=== PATIENT | male | born 1980 | race Two or more races ===

== ENCOUNTER 2021-10-10 15:06 | Outpatient (AMBR) | payer BC, SELFPAY ==
--- NOTE | 2021-09-20 13:42 | PTNOTE_ITS ---
PT OP Initial Eval Patient Information Visit Reasons: left calf sprain Medical Diagnosis: S86.91 Treatment Dx #1: Left Calf Pain Treatment Dx #2: Difficulty Walking Start of Care: 09/20/21 Date of Onset: May 2021 Initial Assessment Subjective Pt is a 41 y/o male c/o left calf pain (04/20) started after he stepped wrong and heard a pop back in May 2021. Pt instantly saw bruising and swelling as well in ability to walk. Pt's MRI found a partial thickness tear of the medial head of the gastrocnemius. Pt was initially seeing Dr Hairston but was transferred to Dr Yusuf due to [place]. Pt was wearing a cam boot for several we ek. At the moment Pt feels 75% better. Pt has limitation with prolonged walking, self care, chores, work duties, squatting, kneeling, standing, recreational activities, and traveling. Objective Left Ankle AROM DF: 10 deg PF: 30 deg Inversion: 20 deg Eversion: 15 deg Left Ankle MMTs: grossly 3-/5 Left Hip MMTs: grossly 3/5 SLS: 3 sec with ankle instability and imbalance Assessment Pt demonstrate left ankle pain and weakness consistent with MRI finding of the torn medial head of the gastroc leading to decline function. 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 1) Increase left ankle AROM WFL in 6 wks to be able to perform chores 2) Increase left ankle MMTs grossly to 4-/5 in 6 wks to be able to perform work duties 3) Increase left hip MMTs grossly to 4-/5 in 6 wks to be able to ambulate more than 1 hr 4) Decrease ankle pain to 2/10 in 6 wks to be able to travel 5) Increase SLS to 15 sec in 6 wks to be able to eprform self care activities 6) Indep with HEP Treatment Plan 1) Manual Therapy 2) Therapeutic Activities 3) Therapeutic Exercises 4) Modalities (ice, heat) 5) Balance Training 6) Gait Training Frequency and Duration 2 x wk for 6 wks Certification Dates: 09/20/21 to 12/19/20 Office Procedures PT Treatments PT Date of Service: 09/20/21 OP PT Eval Mod Complex 30 minutes: Yes
--- NOTE | 2021-09-24 12:38 | PT.ODAYNRPT ---
PT Outpatient Daily Note Date of Service: 09/24/21 OP Daily Note Visit Reasons: left calf sprain Outpatient Physical Therapy Treatment Date: 09/24/21 Subjective: Pt mention that his ankle does hurt or swells as much now. Pt saw surgeon yesterday and extended his leave 4 more weeks. Objective: Please see flow chart for list of ther ex performed Assessment: tolerate exercises with minimal pain Plan: Continue with PT Length of Time (minutes) of Treatment: 30 Minutes Office Procedures PT Treatments PT Date of Service: 09/24/21 Therapeutic Exercise 30 minutes: Yes PT Treatments PT Date of Service: 09/20/21 OP PT Eval Mod Complex 30 minutes: Yes
--- NOTE | 2021-09-26 16:44 | PTNOTE_ITS ---
PT Outpatient Daily Note Date of Service: 09/26/2021 OP Daily Note Visit Reasons: left calf sprain Outpatient Physical Therapy Treatment Date: 09/26/21 Subjective: pt states his LLE is doing ok upon visit. Objective: see flow sheet. Assessment: noted pt rubbing his L calf after he was done with the bike but denied pain and discomfort. noted limited ROM with calf raises. his weight shifting during tick- tock exercise causing him to slightly forward onto the rail could be for compensations. his balance still needs more practice as he is unsteady. pt refused ice pack post ther ex. Plan: continue POC per PT. Length of Time (minutes) of Treatment: 30 Minutes Office Procedures PT Treatments PT Date of Service: 09/24/21 Therapeutic Exercise 30 minutes: Yes PT Treatments PT Date of Service: 09/26/21 Therapeutic Exercise 30 minutes: Yes PT Treatments PT Date of Service: 09/20/21 OP PT Eval Mod Complex 30 minutes: Yes
--- NOTE | 2021-09-30 15:35 | PT.ODAYNRPT ---
PT Outpatient Daily Note Date of Service: 09/30/21 OP Daily Note Visit Reasons: left calf sprain Outpatient Physical Therapy Treatment Date: 09/30/21 Subjective: Pt mention that his ankle and calf is sore but feels better. Objective: Please see flow chart for list of ther ex performed Assessment: tolerate exercises with minimal pain Plan: Continue with PT Length of Time (minutes) of Treatment: 40 Minutes Office Procedures PT Treatments PT Date of Service: 09/24/21 Therapeutic Exercise 30 minutes: Yes PT Treatments PT Date of Service: 09/26/21 Therapeutic Exercise 30 minutes: Yes PT Treatments PT Date of Service: 09/30/21 Therapeutic Activity 15 minutes: Yes Therapeutic Exercise 30 minutes: Yes PT Treatments PT Date of Service: 09/20/21 OP PT Eval Mod Complex 30 minutes: Yes
--- NOTE | 2021-10-08 15:58 | PT.ODAYNRPT ---
PT Outpatient Daily Note Date of Service: 10/08/21 OP Daily Note Visit Reasons: left calf sprain Outpatient Physical Therapy Treatment Date: 10/08/21 Subjective: Pt's calf muscle is getting better. Pt feels stronger and walking longer with less pain Objective: Please see flow chart for list of ther ex performed Assessment: tolerate exercises with minimal pain Plan: Continue with PT Length of Time (minutes) of Treatment: 30 Minutes Office Procedures PT Treatments PT Date of Service: 09/24/21 Therapeutic Exercise 30 minutes: Yes PT Treatments PT Date of Service: 09/26/21 Therapeutic Exercise 30 minutes: Yes PT Treatments PT Date of Service: 09/30/21 Therapeutic Activity 15 minutes: Yes Therapeutic Exercise 30 minutes: Yes PT Treatments PT Date of Service: 10/08/21 Therapeutic Exercise 30 minutes: Yes PT Treatments PT Date of Service: 09/20/21 OP PT Eval Mod Complex 30 minutes: Yes
--- NOTE | 2021-10-10 16:00 | PT.ODAYNRPT ---
PT Outpatient Daily Note Date of Service: 10/10/21 OP Daily Note Visit Reasons: left calf sprain Outpatient Physical Therapy Treatment Date: 10/10/21 Subjective: Pt mention that his calf and ankle feels good. Objective: Please see flow chart for list of ther ex performed Assessment: tolerate exercises with minimal pain Plan: Continue with PT Length of Time (minutes) of Treatment: 30 Minutes Office Procedures PT Treatments PT Date of Service: 09/24/21 Therapeutic Exercise 30 minutes: Yes PT Treatments PT Date of Service: 09/26/21 Therapeutic Exercise 30 minutes: Yes PT Treatments PT Date of Service: 09/30/21 Therapeutic Activity 15 minutes: Yes Therapeutic Exercise 30 minutes: Yes PT Treatments PT Date of Service: 10/08/21 Therapeutic Exercise 30 minutes: Yes PT Treatments PT Date of Service: 10/10/21 Therapeutic Exercise 30 minutes: Yes PT Treatments PT Date of Service: 09/20/21 OP PT Eval Mod Complex 30 minutes: Yes
== END 2021-10-11 23:59 | disposition home or self-care (01) ==
PROVIDERS: PCP Nurse Practitioner Family; Referring Provider Nurse Practitioner Family; Visit Provider Orthopaedic Surgery
DX: M79.662 Pain in left lower leg (principal); M25.572 Pain in left ankle and joints of left foot; R26.2 Difficulty in walking, not elsewhere classified; R53.1 Weakness
CPT/HCPCS: 97110; 97162; 97530

== ENCOUNTER 2021-10-22 14:50 | Outpatient (AMBR) | payer BC, SELFPAY ==
--- NOTE | 2021-10-15 15:42 | PT.ODAYNRPT ---
PT Outpatient Daily Note Date of Service: 10/15/21 OP Daily Note Visit Reasons: left calf sprain Outpatient Physical Therapy Treatment Date: 10/15/21 Subjective: Pt's calf muscle feels pretty good. Pt does not have any concerns today Objective: Please see flow chart for list of ther ex performed Assessment: tolerate exercises with minimal pain; difficulty with soleus stretch due to tightness Plan: Continue with PT Length of Time (minutes) of Treatment: 40 Minutes Office Procedures PT Treatments PT Date of Service: 10/15/21 Therapeutic Exercise 45 minutes: Yes
--- NOTE | 2021-10-17 15:31 | PT.ODAYNRPT ---
PT Outpatient Daily Note Date of Service: 10/17/21 OP Daily Note Visit Reasons: left calf sprain Outpatient Physical Therapy Treatment Date: 10/17/21 Subjective: Pt mention that his left calf feels worse after last session. Pt mention that it was swollen the next day and continues to hurt today. Pt feels that it's related to the stretches we did last time. Objective: Please see flow chart for list of ther ex performed Assessment: tolerate exercises with minimal pain; no resistance done today. Post ice help decrease ankle pain Plan: Continue with PT Length of Time (minutes) of Treatment: 30 Minutes Office Procedures PT Treatments PT Date of Service: 10/15/21 Therapeutic Exercise 45 minutes: Yes PT Treatments PT Date of Service: 10/17/21 Therapeutic Exercise 30 minutes: Yes
--- NOTE | 2021-10-22 16:03 | PT.ODS1RPT ---
PT OP Progress/Discharge Note Date of Service: 10/22/21 Progress Note/DC Note Progress Note/Discharge Note: DC Note Patient Information Visit Reasons: left calf sprain Medical Diagnosis: S86.91 Treatment Dx #1: Left Calf Pain Service Continue Service or Discharge: Discharge Discharge Date: 10/22/21 Status Subjective: Pt's left ankle and calf pain is feeling much better. Pt stated that standing, walking, chores, kneeling, and performing recreational activities are easier now. Pt will like to stop physical therapy and return back to work [employer]. Pt sees at the end of the month. Objective: Left Ankle AROM DF: 15 deg PF: 40 deg Inversion: 20 deg Eversion: 15 deg Left Ankle MMTs: grossly 4-/5 Left Hip MMTs: grossly 3+/5 SLS: 30 sec Assessment: Pt demonstrate functional left ankle ROM and strength allowing him to resume ADLs, ambulate, and perform recreational activities with less limitation. Pt will no longer benefit from physical therapy due to meeting all set goals in therapy. Pt was instructed on HEP last session and educated to continue exercises to maintain overall mobility. Pt performed all exercises safely, thank you for your referrals. Plan: D/C home with HEP and follow up with MD EVANGELISTA Office Procedures PT Treatments PT Date of Service: 10/15/21 Therapeutic Exercise 45 minutes: Yes PT Treatments PT Date of Service: 10/17/21 Therapeutic Exercise 30 minutes: Yes PT Treatments PT Date of Service: 10/22/21 Therapeutic Exercise 30 minutes: Yes
== END 2021-11-11 23:59 | disposition home or self-care (01) ==
PROVIDERS: PCP Nurse Practitioner Family; Referring Provider Nurse Practitioner Family; Visit Provider Orthopaedic Surgery
DX: M79.662 Pain in left lower leg (principal); M25.572 Pain in left ankle and joints of left foot; R26.2 Difficulty in walking, not elsewhere classified; R53.1 Weakness
CPT/HCPCS: 97110

== ENCOUNTER 2025-04-11 13:32 | Observation (INO) | payer MEDICAID, SELFPAY ==
[2025-04-11] VITALS (16 sets, daily range): BP systolic 112–162; BP diastolic 71–92; PULSE 70–89; RESP 9–20; TEMP 36.5–36.7; O2SAT 94–98; BMI 34.2
--- NOTE | 2025-04-11 13:59 | PD.EDRME ---
Rapid Medical Screening Exam E Arrival date/time: 04/11/25 13:32 44-year-old male with a history of hypertension, hyperlipidemia, type 2 diabetes presents to the emergency room with a chief complaint of 8 out of 10 sternal chest pain x 2 days. Patient states this has been going on intermittently for the last 2 months. I have greeted and performed a focused initial assessment of this patient. A comprehensive ED assessment and evaluation of the patient, analysis of all test results, and completion of the medical decision making process will be conducted by additional ED providers. Chief Complaint: Chest Pain Time Seen by Provider: 04/11/25 13:42 Vital signs: Vital Signs Temperature 98.1 F 04/11/25 13:51 Pulse Rate 84 04/11/25 13:51 Respiratory Rate 18 04/11/25 13:51 Blood Pressure 134/80 H 04/11/25 13:51 Pulse Oximetry (%) 97 04/11/25 13:51 Oxygen Delivery Method Room Air 04/11/25 13:51 Vital signs reviewed by provider: Yes
--- NOTE | 2025-04-11 14:06 | XR_ITS ---
Examination: PA lateral chest 2 views TECHNIQUE: Upright PA lateral chest 2 views Date and time: April 11, 2025, 1420 hours Comparison May 26, 2023 INDICATION: Chest pain beginning 3 weeks ago. FINDINGS: Normal heart size The lungs are clear. Mild elevation right hemidiaphragm IMPRESSION: No active disease
--- NOTE | 2025-04-11 14:06 | EKG_ITS ---
[facility] Test Date: 2025-04-11 Pat Name: CHENCHO SCHRADER Department: Room: - Gender: Male Placement Officer: : 1980 Requested By: Howie Mcghee Order Number: [id number] Reading MD: Howie Mcghee Measurements Intervals [place] Rate: 80 P: 25 CA: 151 QRS: 7 QRSD: 114 T: 63 QT: 342 QTc: 396 Interpretive Statements SINUS RHYTHM POSSIBLE ANTERIOR MYOCARDIAL INFARCTION , OF INDETERMINATE AGE [30 ms Q WAVE IN V3/V4, OR R < 0.2 mV IN V4] Compared to ECG 05/26/2023 10:30:27 Myocardial infarct finding now present /store/S0/[id number]/ecg/[id number].pdf
[2025-04-11 14:42] LABS: Basophils # (Auto) 0.1 Thou/mm3 (0.0-0.2); Basophils % (Auto) 1 % (0-2.5); Eosinophils # (Auto) 0.2 Thou/mm3 (0.0-0.5); Eosinophils % (Auto) 3 % (0-10); Hematocrit 42.1 % (41.0-53.0); Hemoglobin 13.6 g/dL (13.5-16.0); Immature Granulocytes Auto 0.02 Thou/mm3 (0.00-0.00); Lymphocytes # (Auto) 2.3 Thou/mm3 (1.0-4.8); Lymphocytes % (Auto) 33 % (10-50); Mean Corpuscular HGB Conc 32.3 g/dl (31.0-37.0); Mean Corpuscular Hemoglobin 22.8 pg (25.0-35.0); Mean Corpuscular Volume 71 fL (80-100); Monocytes # (Auto) 0.7 Thou/mm3 (0.0-0.8); Monocytes % (Auto) 10 % (0-12); Neutrophils # (Auto) 3.7 Thou/mm3 (1.8-7.7); Neutrophils % (Auto) 53 % (37-80); Nucleated Red Blood Cell # 0.00 Thou/mm3 (0.00-0.00); Nucleated Red Blood Cell % 0 /100 WBC (0); Platelet Count 287 Thou/mm3 (140-440); RDW Standard Deviation 37.6 fL (35.1-43.9); Red Blood Count 5.96 Miln/mm3 (4.50-5.90); White Blood Count 7.0 Thou/mm3 (3.8-10.6)
[2025-04-11 14:58] LABS: B-Type Natriuretic Peptide < 20 pg/mL (0-100)
[2025-04-11 15:00] LABS: Alanine Aminotransferase 31 U/L (10-49); Albumin, Serum 4.3 gm/dL (3.5-5.0); Albumin/Globulin Ratio 1.5 (1.2-2.2); Alkaline Phosphatase 89 U/L (46-116); Anion Gap 5 (7-16); Aspartate Amino Transferase 28 U/L (0-34); BUN/Creatinine Ratio 9 Ratio (12-20); Bilirubin,Total 0.8 mg/dL (0.3-1.2); Blood Urea Nitrogen 11 mg/dL (9-23); Calcium 8.9 mg/dL (8.3-10.6); Calcium (Corrected) 8.9 mg/dL (8.5-10.1); Carbon Dioxide 26.1 mMol/L (20.0-31.0); Chloride 106 mMol/L (98-107); Creatinine (Component) 1.2 mg/dL (0.6-1.3); Estimated Creatinine Clearance 101.7 mL/min (>60); Globulin 2.9 gm/dL (2.3-3.5); Glucose 165 mg/dL (74-106); Osmolality,Calculated 277 (275-295); Potassium 4.3 mMol/L (3.4-5.1); Sodium 137 mMol/L (136-145); Total Protein 7.2 gm/dL (5.7-8.2); eGFR > 60 See Note
[2025-04-11 15:04] LABS: INR 1.0 (0.9-1.3); Partial Thromboplastin Time 26.8 Seconds (22.0-36.0); Prothrombin Time 11.0 Seconds (9.0-12.2)
[2025-04-11 15:09] LABS: Troponin I 0.196 ng/mL (0.0-0.045)
[2025-04-11 16:05] LABS: Collection Type, Urine Clean Catch
[2025-04-11 16:43] LABS: Amphetamine/Methamp Scrn,U Negative (Negative); Barbiturate Screen,Urine Negative (Negative); Benzodiazepines Screen,Urine Negative (Negative); Benzoylecgonine Screen, Ur Negative (Negative); Fentanyl Screen,Urine Negative (Negative); Opiate Screen,Urine Negative (Negative); THC Screen,Urine Negative (Negative)
[2025-04-11 16:51] LABS: Bilirubin,Urine Negative (Negative); Blood,Urine Negative (Negative); Clarity,Urine Clear (Clear/Hazy); Color,Urine Lt-Yellow (Lt Yel-Yel); Glucose, Urine 4+ (Negative); Ketones,Urine Negative (Negative); Leukocyte Esterase,Urine Negative (Negative); Nitrite,Urine Negative (Negative); PH,Urine 6.5 (5.0-7.0); Protein,Urine 1+ (Neg - Trace); RBC,Urine 1 /hpf (0-3); Specific Gravity,Urine 1.039 (1.001-1.035); Squamous Epithelial Cell,Urine < 1 /hpf (0-5); Urobilinogen,Urine Negative mg/dL (0.0-1.0); WBC,Urine < 1 /hpf (0-5)
[2025-04-11] MEDS: ASPIRIN 81 MG CHEW 162 MG PO (17:29)
[2025-04-11 17:53] LABS: Troponin I 0.186 ng/mL (0.0-0.045)
--- NOTE | 2025-04-11 19:16 | ESHP_ITS ---
<Statement entered by Brannon Deluna MD - 04/13/25 13:59> 44-year-old with past medical history significant for diabetes mellitus, chronic hypertension who presents emergency department with chest pain. His chest pain has some typical features. His initial troponin was mildly elevated but it peaked in the emergency room. Patient will be placed in observation for serial troponin. Will check echocardiogram. Will discuss with cardiology. Patient will need ischemic workup in the form of a stress test or CCTA as an outpatient. I have discussed and was present for the essential components of the history, physical examination, diagnosis, and treatment plan with the resident. I agree with the patient's care as documented by the resident and amended herein by me. Brannon Deluna MD FACP. Documentation for date of: 04/11/25 HPI History of Present Illness Chief complaint: Chest pain History of present illness: 44-year-old male with history of untreated hypertension, hyperlipidemia (on statin), and T2DM (on Farxiga, compliant) who presents with intermittent midsternal chest pain for several weeks, worsened significantly over the past 2 days. This morning, he developed severe midsternal chest pressure, described as crushing pain 8?9/10, with numbness and pain radiating to both arms and numbness/cold sensation in his feet. Pain is episodic, lasting 2?3 seconds, worse with movement. Associated with shortness of breath, dizziness, and nausea with vomiting for the first time today, prompting ED visit. Denies prior cardiac history, smoking, or family history of heart disease. ROS otherwise negative. Allergic to penicillin. ED Course: In the ED, the patient was given 162 mg of aspirin. An EKG was obtained and was normal. A chest X-ray was done, which showed no active disease. Labs showed a troponin peak of 0.196, which is currently trending downward. Creatinine was 1.2, glucose was 165, and PT/INR was normal. Review of Systems Review of Systems Narrative Review of Systems: negative ROS unless stated above Exam Vital Signs Temp Pulse Resp BP Pulse Ox O2 Del Method 97.9 F 79 19 130/81 96 Room Air 04/11/25 18:21 04/11/25 18:21 04/11/25 18:21 04/11/25 18:21 04/11/25 18:21 04/11/25 18:21 Narrative Exam General: Alert, no acute distress. Cardiac: RRR, normal S1/S2, no murmurs, rubs, or gallops, no JVD. Lungs: Clear to auscultation bilaterally, no rales or wheezes. Extremities: No cyanosis or edema, Results: Labs 04/13/25 05:13 04/13/25 05:13 Labs: Short CBC 04/11/25 Range/Units 14:18 WBC 7.0 (3.8-10.6) Thou/mm3 Hgb 13.6 (13.5-16.0) g/dL Hct 42.1 (41.0-53.0) % Plt Count 287 (140-440) Thou/mm3 BMP 04/11/25 14:18 Sodium 137 Potassium 4.3 Chloride 106 Carbon Dioxide 26.1 BUN 11 Creatinine 1.2 Glucose 165 H Calcium 8.9 Cardiac Enzymes 04/11/25 04/11/25 Range/Units 14:18 17:23 Troponin I 0.196 H* 0.186 H* (0.0-0.045) ng/mL Liver Function 04/11/25 Range/Units 14:18 Total Bilirubin 0.8 (0.3-1.2) mg/dL AST 28 (0-34) U/L ALT 31 (10-49) U/L Alkaline Phosphatase 89 (46-116) U/L Albumin 4.3 (3.5-5.0) gm/dL Urine 04/11/25 Range/Units 15:11 Urine Color Lt-Yellow (Lt Yel-Yel) Urine Clarity Clear (Clear/Hazy) Urine pH 6.5 (5.0-7.0) Ur Specific [place] 1.039 H (1.001-1.035) Urine Protein 1+ A (Neg - Trace) Urine Glucose (UA) 4+ A (Negative) Quality Measures Quality Measures VTE prophylaxis Medications Home Medications and Allergies Home Medications ?Medication ?Instructions ?Recorded ?Confirmed ?Type ergocalciferol (vitamin D2) 1,250 1,250 mcg PO QWEEK 0 12/16/21 04/11/25 History mcg (50,000 unit) capsule dapagliflozin propanediol 10 mg 10 mg PO DAILY 5 04/11/25 History tablet (Farxiga) testosterone cypionate 200 mg/mL 400 mg subcut Q7D 11/0504/11/25 History intramuscular oil Allergies Allergy/AdvReac Type Severity Reaction Status Date / Time Penicillins Allergy Severe Difficulty Verified 04/11/25 13:35 Breathing Visit Medications Acetaminophen (Acetaminophen 325 Mg Tablet) 650 mg PO Q6H PRN PRN Reason: Fever >100.4 or pain Stop: 05/11/25 18:45 Hydrocodone Bitart/Acetaminophen (Hydrocodone/Apap 5/325 Tablet) 1 tab PO Q4HR PRN PRN Reason: PAIN SCALE 4-10(Mod-Sev Stop: 04/16/25 18:45 Aspirin (Aspirin Ec 81 Mg Tabec) 81 mg PO QDAY [facility] Stop: 05/12/25 08:59 Atorvastatin Calcium (Atorvastatin Calcium 20 Mg Tablet) 80 mg PO [facility] Stop: 05/11/25 20:59 Dextrose (Dextrose 50%-Water Inj 50 Ml Syringe) 25 ml IV Q15MIN PRN PRN Reason: BG 50-70 responsive npo pt Stop: 05/11/25 18:51 Dextrose (Dextrose 50%-Water Inj 50 Ml Syringe) 50 ml IV Q15MIN PRN PRN Reason: BG <50 OR BG <70 & pt unresponsive Stop: 05/11/25 18:51 Enoxaparin Sodium (Enoxaparin Sod Inj 40 Mg/0.4 Ml Syringe) 40 mg SC QDAY [facility] Stop: 04/26/25 08:59 Glucagon (Glucagon Inj 1 Mg Vial) 1 mg IM Q15MIN PRN PRN Reason: BG <70, and no IV access Insulin Human Lispro (Insulin Lispro (Admelog) 1 Unit/0.01 Ml Unit) 0 unit SC [facility]; Protocol Stop: 05/12/25 07:29 Lisinopril (Lisinopril 20 Mg Tablet) 20 mg PO QDAY [facility] Stop: 05/12/25 08:59 Nitroglycerin (Nitroglycerin 0.4 Mg Subl Btl #25) 0.4 mg SL Q5M PRN PRN Reason: CHEST PAIN Ondansetron HCl (Ondansetron Inj 2 Mg/Ml Inj 2 Ml) 4 mg IVP Q6H PRN; Protocol PRN Reason: NAUSEA OR VOMITING Stop: 05/11/25 18:45 Discontinued Medications Aspirin (Aspirin 81 Mg Chew) 162 mg PO X1 ONE Stop: 04/11/25 17:14 Last Admin: 04/11/25 17:29 Dose: 162 mg Assessment & Plan Plan 44 y/o M with HTN, HLD, T2DM presenting with exertional chest pain, concerning for unstable angina vs NSTEMI (troponin 0.196, trending down) #Chest Pain/ rule out ACS Extertional chest pain that improved with aspirin, pmh of HTN, HLD and T2DM. EKG and CXR was normal * Continue telemetry monitoring * Ordered echo * Repeat serial troponins Am * Repeat EKG if symptoms worsen * Started atorvastatin 80 mg * started lisinopril 20 mg * started aspirin 81 mg * Keep nitro PRN if BP allows * ordered lipid panel, A1c and tsh * ordered mag and phosph * Cardiology consulted #Hypertension * Monitor BP closely; control as needed * [employer] on starting long-term antihypertensive therapy #HLD * Started on atorvastatin 80 mg #T2DM * Monitor glucose, adjust as needed * started insulin sliding scale Health Maintenance * Disposition: Admit to telemetry bed * Diet: Carbohydrate consistent * VTE prophylaxis: enoxaparin * GI prophylaxis: N/A * Code status: Full ----- Plan discussed with attending physician Dr. Regi Hidalgo MD PGY-1 Internal Medicine Patient seen and examined at bedside. I discussed and supervised with the investigator internal revenue physician who took care of this patient. I personally saw and examined the patient. I agree with most of the assessment and plan. Patient has intermittent chest pain, severe, relieved with aspirin. EKG negative, troponin peaked at 0.196. Patient has risk factors, HTN, T2DM. Will admit patient for observation. Lab workup including lipids, TSH, A1c, repeat troponin. Echo ordered. Started on atorvastatin, aspirin, lisinopril. ISS and carb consistent diet for diabetes. Telemetry monitoring. Possibly discharge tomorrow if nor concerning findings and symptoms improve. Plan of care discussed with attending Dr. Deluna. Don Babin MD PGY-2
[2025-04-11] MEDS: ATORVASTATIN CALCIUM 20 MG TABLET 80 MG PO (21:02)
[2025-04-12] VITALS (7 sets, daily range): BP systolic 107–138; BP diastolic 63–87; PULSE 34–90; RESP 12–16; TEMP 36.3–37; O2SAT 95–98
[2025-04-12] MEDS: ONDANSETRON INJ 2 MG/ML INJ 2 ML 4 MG IVP ×2 (00:21→13:37)
[2025-04-12 05:51] LABS: Basophils # (Auto) 0.0 Thou/mm3 (0.0-0.2); Basophils % (Auto) 1 % (0-2.5); Eosinophils # (Auto) 0.3 Thou/mm3 (0.0-0.5); Eosinophils % (Auto) 4 % (0-10); Hematocrit 40.9 % (41.0-53.0); Hemoglobin 13.0 g/dL (13.5-16.0); Immature Granulocytes Auto 0.02 Thou/mm3 (0.00-0.00); Lymphocytes # (Auto) 2.1 Thou/mm3 (1.0-4.8); Lymphocytes % (Auto) 32 % (10-50); Mean Corpuscular HGB Conc 31.8 g/dl (31.0-37.0); Mean Corpuscular Hemoglobin 22.5 pg (25.0-35.0); Mean Corpuscular Volume 71 fL (80-100); Monocytes # (Auto) 0.6 Thou/mm3 (0.0-0.8); Monocytes % (Auto) 10 % (0-12); Neutrophils # (Auto) 3.6 Thou/mm3 (1.8-7.7); Neutrophils % (Auto) 54 % (37-80); Nucleated Red Blood Cell # 0.00 Thou/mm3 (0.00-0.00); Nucleated Red Blood Cell % 0 /100 WBC (0); Platelet Count 284 Thou/mm3 (140-440); RDW Standard Deviation 38.4 fL (35.1-43.9); Red Blood Count 5.77 Miln/mm3 (4.50-5.90); White Blood Count 6.6 Thou/mm3 (3.8-10.6)
[2025-04-12 06:01] LABS: INR 1.0 (0.9-1.3); Partial Thromboplastin Time 27.1 Seconds (22.0-36.0); Prothrombin Time 11.4 Seconds (9.0-12.2)
[2025-04-12 06:37] LABS: Alanine Aminotransferase 37 U/L (10-49); Albumin, Serum 4.0 gm/dL (3.5-5.0); Albumin/Globulin Ratio 1.5 (1.2-2.2); Alkaline Phosphatase 72 U/L (46-116); Anion Gap 6 (7-16); Aspartate Amino Transferase 31 U/L (0-34); BUN/Creatinine Ratio 13 Ratio (12-20); Bilirubin,Total 0.6 mg/dL (0.3-1.2); Blood Urea Nitrogen 14 mg/dL (9-23); Calcium 8.4 mg/dL (8.3-10.6); Calcium (Corrected) 8.4 mg/dL (8.5-10.1); Carbon Dioxide 26.0 mMol/L (20.0-31.0); Cardiac Risk Estimate 5.0 RATIO (4.0-6.7); Chloride 107 mMol/L (98-107); Cholesterol 140 mg/dL (132-200); Creatinine (Component) 1.1 mg/dL (0.6-1.3); Estimated Creatinine Clearance 109.2 mL/min (>60); Globulin 2.6 gm/dL (2.3-3.5); Glucose 137 mg/dL (74-106); HDL Cholesterol 28 mg/dL (40-60); LDL Cholesterol,Calculated 70 mg/dL (0-130); Magnesium 2.1 mg/dL (1.6-2.6); Osmolality,Calculated 280 (275-295); Phosphorous 2.8 mg/dL (2.4-5.1); Potassium 4.3 mMol/L (3.4-5.1); Sodium 139 mMol/L (136-145); Thyroid Stimulating Hormone 1.52 uIU/mL (0.55-4.78); Total Protein 6.6 gm/dL (5.7-8.2); Triglycerides 209 mg/dL (30-150); Troponin I 0.185 ng/mL (0.0-0.045); eGFR > 60 See Note
[2025-04-12 08:18] LABS: Misc Send Out* See Sep Rpt
[2025-04-12] MEDS: ASPIRIN EC 81 MG TABEC PO (09:03)
[2025-04-12] MEDS: ENOXAPARIN SOD INJ 40 MG/0.4 ML SYRINGE SC (09:04)
[2025-04-12] MEDS: CALCIUM CARBONATE 600 MG TABLET PO (09:04)
--- NOTE | 2025-04-12 10:42 | PC.SS ---
Patient Edu Gibbons is a 44 Year old male admitted for Chest Pain. SS met with patient at bedside to discuss discharge plan. Patient reports he lives at home with family. Patient reports his Manolo Gibbons is his surrogate decision maker, . Patient is able to complete all ADL's independently and does not utilize any source of DME. Patient's PCP is Kelley Moctezuma. At time of discharge patient will return home. Family will provide transportation. Next of kin: , Manolo Gibbons Discharge plan: Home
--- NOTE | 2025-04-12 11:41 | PC.SS ---
SS follow up note; Patient is pending Cardiology Rec's. Patient will discharge home when medically cleared.
[2025-04-12] MEDS: HYDROcodone/APAP 5/325 TABLET 1 TAB PO (13:03)
--- NOTE | 2025-04-12 13:14 | ESPR_ITS ---
<Statement entered by Brannon Deluna MD - 04/13/25 19:44> I have discussed and was present for the essential components of the history, physical examination, diagnosis, and treatment plan with the resident. I agree with the patient's care as documented by the resident and amended herein by me. Brannon Deluna MD FACP. Documentation for date of: 04/12/25 Subjective Subjective Interval history: Patient seen at bedside this morning. He reported one episode of chest pain earlier this morning, but denied chest pain at the time of exam. He continues to have left arm numbness and intermittent shortness of breath, describing it as feeling like it?s hard to catch his breath at times. No vomiting but did have nausea, which improved with Zofran. Able to ambulate to bathroom but felt dizzy when walking. Denies muscle aches, swelling, calf pain, or headache. Later this afternoon, patient began complaining of lower colicky abdominal pain, described as 7/10, coming and going. He was given morphine with relief initially but then had another episode about an hour later, describing it as stabbing pain. An EKG was repeated at that time and showed sinus rhythm. An abdominal X- ray was obtained, which showed mild small bowel ileus and moderate stool burden in the colon. He was given Miralax, Senna, and Simethicone, and also received Toradol for pain. Labs: -Troponin stable, mildly elevated at 0.195 (prior 0.185, peak 0.196) -Hgb 13 -Electrolytes WNL -Creatinine 1.1 -Glucose 137 -Calcium 8.4, received calcium carbonate 600 mg PO Imaging: EKG: Sinus rhythm, no ischemic changes CXR: No acute disease Abdominal X-ray: Mild small bowel ileus, moderate stool burden Exam Vital Signs Temp Pulse Resp BP Pulse Ox O2 Del Method 98.1 F 34 L 16 133/77 H 98 Room Air 04/12/25 08:00 04/12/25 09:03 04/12/25 08:00 04/12/25 09:03 04/12/25 08:00 04/12/25 08:00 Narrative Exam -General: Alert, no acute distress -Cardiac: RRR, normal S1/S2, no murmurs, rubs, or gallops, no JVD -Lungs: Clear to auscultation bilaterally, mild SOB with deep breaths -Abdomen: Soft, mild lower abdominal tenderness, non-distended, normal bowel sounds, no guarding or rebound -Extremities: No cyanosis or edema, pulses 2+ bilaterally, warm, well-perfused Objective Labs 04/12/25 05:28 04/12/25 05:28 Labs: Laboratory Results - last 24 hr 04/11/25 04/11/25 04/11/25 14:18 15:11 17:23 WBC 7.0 RBC 5.96 H Hgb 13.6 Hct 42.1 MCV 71 L MCH 22.8 L MCHC 32.3 RDW Std Deviation 37.6 Plt Count 287 Neut % (Auto) 53 Lymph % (Auto) 33 [place] % (Auto) 10 Eos % (Auto) 3 Baso % (Auto) 1 Neut # (Auto) 3.7 Lymph # (Auto) 2.3 [place] # (Auto) 0.7 Eos # (Auto) 0.2 Baso # (Auto) 0.1 Immature Gran # (Auto) 0.02 H Absolute Nucleated RBC 0.00 Immature Gran % 0 Nucleated RBC % 0 PT 11.0 INR 1.0 APTT 26.8 Sodium 137 Potassium 4.3 Chloride 106 Carbon Dioxide 26.1 Anion Gap 5 L BUN 11 Creatinine 1.2 Estim Creat Clear Calc 101.7 eGFR > 60 BUN/Creatinine Ratio 9 L Glucose [address] Glu mg/dL Hemoglobin A1c Calculated Osmolality 277 Calcium 8.9 Corrected Calcium 8.9 Phosphorus Magnesium Total Bilirubin 0.8 AST 28 ALT 31 Alkaline Phosphatase 89 Troponin I 0.196 H* 0.186 H* B-Natriuretic Peptide < 20 Total Protein 7.2 Albumin 4.3 Globulin 2.9 Albumin/Globulin Ratio 1.5 Triglycerides Cholesterol LDL Cholesterol, Calc HDL Cholesterol Cholesterol/HDL Ratio TSH Ur Collection Type Clean Catch Urine Color Lt-Yellow Urine Clarity Clear Urine pH 6.5 Ur Specific [place] 1.039 H Urine Protein 1+ A Urine Glucose (UA) 4+ A Urine Ketones Negative Urine Blood Negative Urine Nitrite Negative Urine Bilirubin Negative Urine Urobilinogen (Auto) Negative Ur Leukocyte Esterase Negative Urine RBC 1 Urine WBC < 1 Ur Squamous Epith Cells < 1 Urine Bacteria None Urine Opiates Screen Negative Urine Fentanyl Screen Negative Ur Barbiturates Screen Negative U Amphetamin/Meth Scrn Negative U Benzodiazepines Scrn Negative U Cocaine Metab Screen Negative U Marijuana (THC) Screen Negative 04/12/25 05:28 WBC 6.6 RBC 5.77 Hgb 13.0 L Hct 40.9 L MCV 71 L MCH 22.5 L MCHC 31.8 RDW Std Deviation 38.4 Plt Count 284 Neut % (Auto) 54 Lymph % (Auto) 32 [place] % (Auto) 10 Eos % (Auto) 4 Baso % (Auto) 1 Neut # (Auto) 3.6 Lymph # (Auto) 2.1 [place] # (Auto) 0.6 Eos # (Auto) 0.3 Baso # (Auto) 0.0 Immature Gran # (Auto) 0.02 H Absolute Nucleated RBC 0.00 Immature Gran % 0 Nucleated RBC % 0 PT 11.4 INR 1.0 APTT 27.1 Sodium 139 Potassium 4.3 Chloride 107 Carbon Dioxide 26.0 Anion Gap 6 L BUN 14 Creatinine 1.1 Estim Creat Clear Calc 109.2 eGFR > 60 BUN/Creatinine Ratio [address]ucose [address] Glu mg/dL Cancelled Hemoglobin A1c Cancelled Calculated Osmolality 280 Calcium 8.4 Corrected Calcium 8.4 L Phosphorus 2.8 Magnesium 2.1 Total Bilirubin 0.6 AST 31 ALT 37 Alkaline Phosphatase 72 Troponin I 0.185 H* B-Natriuretic Peptide Total Protein 6.6 Albumin 4.0 Globulin 2.6 Albumin/Globulin Ratio 1.5 Triglycerides 209 H Cholesterol 140 LDL Cholesterol, Calc 70 HDL Cholesterol 28 L Cholesterol/HDL Ratio 5.0 TSH 1.52 Ur Collection Type Urine Color Urine Clarity Urine pH Ur Specific [place] Urine Protein Urine Glucose (UA) Urine Ketones Urine Blood Urine Nitrite Urine Bilirubin Urine Urobilinogen (Auto) Ur Leukocyte Esterase Urine RBC Urine WBC Ur Squamous Epith Cells Urine Bacteria Urine Opiates Screen Urine Fentanyl Screen Ur Barbiturates Screen U Amphetamin/Meth Scrn U Benzodiazepines Scrn U Cocaine Metab Screen U Marijuana (THC) Screen Quality Measures Quality Measures VTE prophylaxis Assessment & Plan Assessment Current Active Medications: Generic Name Dose Route Start Last Admin Trade Name Freq PRN Reason Stop Dose Admin Acetaminophen 650 mg 04/11/25 18:46 Acetaminophen 325 Mg Tablet PO 05/11/25 18:45 Q6H PRN Fever >100.4 or pain Hydrocodone Bitart/Acetaminophen 1 tab 04/11/25 18:46 04/12/25 13:03 Hydrocodone/Apap 5/325 Tablet PO 04/16/25 18:45 1 tab Q4HR PRN Administration PAIN SCALE 4-10(Mod-Sev Aspirin 81 mg 04/12/25 09:00 04/12/25 09:03 Aspirin Ec 81 Mg Tabec PO 05/12/25 08:59 81 mg QDAY ELLIOTT Administration Atorvastatin Calcium 80 mg 04/11/25 21:00 04/11/25 21:02 Atorvastatin Calcium 20 Mg Tablet PO 05/11/25 20:59 80 mg HS ELLIOTT Administration Dextrose 25 ml 04/11/25 18:52 Dextrose 50%-Water Inj 50 Ml Syringe IV 05/11/25 18:51 Q15MIN PRN BG 50-70 responsive npo pt Dextrose 50 ml 04/11/25 18:52 Dextrose 50%-Water Inj 50 Ml Syringe IV 05/11/25 18:51 Q15MIN PRN BG <50 OR BG <70 & pt unresponsive Enoxaparin Sodium 40 mg 04/12/25 09:00 04/12/25 09:04 Enoxaparin Sod Inj 40 Mg/0.4 Ml Syringe SC 04/26/25 08:59 40 mg QDAY ELLIOTT Administration Glucagon 1 mg 04/11/25 18:52 Glucagon Inj 1 Mg Vial IM Q15MIN PRN BG <70, and no IV access Insulin Human Lispro 0 unit 04/12/25 07:30 04/12/25 12:21 Insulin Lispro (Admelog) 1 Unit/0.01 Ml Unit SC 05/12/25 07:29 Not Given AC [facility] Protocol Lisinopril 20 mg 04/12/25 09:00 04/12/25 09:03 Lisinopril 20 Mg Tablet PO 05/12/25 08:59 20 mg QDAY ELLIOTT Administration Nitroglycerin 0.4 mg 04/11/25 18:56 Nitroglycerin 0.4 Mg Subl Btl #25 SL Q5M PRN CHEST PAIN Ondansetron HCl 4 mg 04/11/25 18:46 04/12/25 00:21 Ondansetron Inj 2 Mg/Ml Inj 2 Ml IVP 05/11/25 18:45 4 mg Q6H PRN Administration NAUSEA OR VOMITING Protocol Plan Assessment 44 y/o M with PMH HTN, HLD, T2DM admitted for exertional chest pain with peak troponin 0.196, now stable at 0.195. Echo pending. Cardiology consulted, awaiting recommendations. Patient had one episode of CP this morning but asymptomatic now. Continues to have left arm numbness and intermittent SOB. Newly developed lower abdominal pain this afternoon with X-ray showing mild ileus and stool burden ? being managed supportively. #Chest Pain -Troponin stable, EKG normal -Echo pending -Cardiology consulted, awaiting recs -Continue aspirin, atorvastatin 80mg -Continue lisinopril 20 mg daily for BP control -Nitro PRN if chest pain recurs #Abdominal Pain/Mild Ileus -Likely related to constipation and mild ileus on imaging -Given Miralax, Senna, Simethicone -Toradol given for pain; monitor for response -Encourage ambulation and hydration -Monitor for worsening pain, distension, or signs of obstruction #Hypertension -Continue lisinopril 20?mg daily -Monitor BP #T2DM -Continue Farxiga -Monitor glucose #SOB #Dizziness -Check orthostatics -Encourage ambulation as tolerated -Monitor for worsening #Left Arm Numbness -Monitor for neuro changes -No acute intervention if stable # Electrolytes/Calcium -Calcium carbonate given for low-normal calcium -Recheck if needed Health Maintenance * Disposition: Admit to telemetry bed * Diet: Carbohydrate consistent * VTE prophylaxis: enoxaparin * GI prophylaxis: N/A * Code status: Full ----- Plan discussed with attending physician Dr. Regi Hidalgo MD PGY-1 Internal Medicine Patient seen and examined at bedside, no acute overnight events. I discussed and supervised with the internal communications specialist physician who took care of this patient. I personally saw and examined the patient. I agree with most of the assessment and plan. Patient continues to have reccurent pain, mostly located in abdomen now. Troponin remains elevated, stable. KUB showed moderate ileus. Patient started on bowel protocol. Pending cardiac recs. Attempting to avoid opioids. Plan of care discussed with attending Dr. Deluna. Don Babin MD PGY-2
[2025-04-12] MEDS: MORPHINE SULF INJ 10 MG/ML VIAL IVP (13:43)
[2025-04-12 14:28] LABS: Troponin I 0.195 ng/mL (0.0-0.045)
--- NOTE | 2025-04-12 14:34 | PD.IMCONS ---
HPI Data of Consult Requesting Physician: Brannon Deluna MD Primary Care Provider: Kelley Moctezuma PA-C Consult Narrative History of present illness: 44-year-old male with history of untreated hypertension, hyperlipidemia (on statin), and T2DM pt seen in the ER with chest pain on and off EKG negatie for ischemia troponin mildl elevated 0.18 x2 ( cc:: cc: Brannon Deluna MD Meds Home Medications and Allergies Home Medications ?Medication ?Instructions ?Recorded ?Confirmed ?Type ergocalciferol (vitamin D2) 1,250 1,250 mcg PO QWEEK 12/16/21 04/11/25 History mcg (50,000 unit) capsule pravastatin 10 mg tablet 10 mg PO DAILY 12/16/21 04/11/25 History dapagliflozin propanediol 10 mg 10 mg PO DAILY 04/11/25 04/11/25 History tablet (Farxiga) tamsulosin 0.4 mg capsule 0.4 mg PO Q24H 04/11/25 04/11/25 History testosterone cypionate 200 mg/mL 400 mg subcut Q7D 04/11/25 04/11/25 History intramuscular oil Allergies Allergy/AdvReac Type Severity Reaction Status Date / Time Penicillins Allergy Severe Difficulty Verified 04/11/25 13:35 Breathing Exam Vital Signs Temp Pulse Resp BP Pulse Ox O2 Del Method 98.4 F 80 15 126/83 96 Room Air 04/12/25 12:00 04/12/25 12:00 04/12/25 12:00 04/12/25 12:00 04/12/25 12:00 04/12/25 12:00 Routine HEENT Exam Head: Present normocephalic and atraumatic Eye: Present EOMI and PERRL ENT: Present mucous membranes moist Routine Neck Exam Neck: Present supple and trachea midline Routine Respiratory Exam Respiratory: Present chest non-tender, lungs clear, normal breath sounds and no resp distress Routine Cardiovascular Exam Cardiovascular: Present RRR Routine Abdominal Exam Abdominal: Present soft and normoactive bowel sounds Routine Extremities Exam Extremities: Present full ROM Routine Skin Exam Skin: Present intact, dry and warm Routine Neurological Exam Neurological: Present alert, oriented X3 and CN II-XII intact Routine Psychiatric Exam Psychiatric: Present normal affect and normal thought process Results Labs 04/12/25 05:28 04/12/25 05:28 Labs: Short CBC 04/11/25 04/12/25 Range/Units 14:18 05:28 WBC 7.0 6.6 (3.8-10.6) Thou/mm3 Hgb 13.6 13.0 L (13.5-16.0) g/dL Hct 42.1 40.9 L (41.0-53.0) % Plt Count 287 284 (140-440) Thou/mm3 BMP 04/11/25 04/12/25 14:18 05:28 Sodium 137 139 Potassium 4.3 4.3 Chloride 106 107 Carbon Dioxide 26.1 26.0 BUN 11 14 Creatinine 1.2 1.1 Glucose 165 H 137 H Calcium 8.9 8.4 Cardiac Enzymes 04/11/25 04/11/25 04/12/25 Range/Units 14:18 17:23 05:28 Troponin I 0.196 H* 0.186 H* 0.185 H* (0.0-0.045) ng/mL 04/12/25 Range/Units 13:45 Troponin I 0.195 H* (0.0-0.045) ng/mL Liver Function 04/11/25 04/12/25 Range/Units 14:18 05:28 Total Bilirubin 0.8 0.6 (0.3-1.2) mg/dL AST 28 31 (0-34) U/L ALT 31 37 (10-49) U/L Alkaline Phosphatase 89 72 (46-116) U/L Albumin 4.3 4.0 (3.5-5.0) gm/dL Urine 04/11/25 Range/Units 15:11 Urine Color Lt-Yellow (Lt Yel-Yel) Urine Clarity Clear (Clear/Hazy) Urine pH 6.5 (5.0-7.0) Ur Specific [place] 1.039 H (1.001-1.035) Urine Protein 1+ A (Neg - Trace) Urine Glucose (UA) 4+ A (Negative) Assessment and Plan Assessment and plan (1) Diabetes mellitus with hyperglycemia: Status: Acute (2) Hypertension: Status: Acute (3) Elevated troponin: Status: Acute Additional Assessment & Plan Additional Plan: pt has mild troponin echo recommended continue current treatment further cardiac for CAD may consider out pt stress testing
--- NOTE | 2025-04-12 15:20 | EKG_ITS ---
[facility] Test Date: 2025-04-12 Pat Name: CHENCHO SCHRADER [facility] Gender: Male Form Grader: YVES : 1980 Requested By: Ana Hidalgo Order Number: [id number] Reading MD: Ana Hidalgo Measurements Intervals [place] Rate: 80 P: 38 [place]: 188 QRS: 21 QRSD: 116 T: 57 QT: 344 QTc: 397 Interpretive Statements SINUS RHYTHM LOW QRS VOLTAGE IN PRECORDIAL LEADS SEPTAL MYOCARDIAL INFARCTION , OF INDETERMINATE AGE Compared to ECG 04/11/2025 14:08:19 Low QRS voltage now present Myocardial infarct finding still present /store/S0/[id number]/ecg/[id number].pdf
--- NOTE | 2025-04-12 15:53 | XR_ITS ---
Examination: Abdomen AP single view Technique: AP portable supine abdomen, single view Exam date and time: April 12, 2025, 1619 hours INDICATIONS: Recurrent abdominal pain today. FINDINGS: Moderate stool in the colon A few loops of air distended small bowel in the midabdomen. No free air. No obstruction. Surgical clips upper right abdomen IMPRESSION: Mild small bowel ileus
--- NOTE | 2025-04-12 16:08 | PC.NURSE ---
1343- patient c/o severe lower abdominal, describe as very sharp pain with nausea,patient is pale and complaining of dizziness and shotness of breath after going to bathroom called dr lucero and made aware, dr dang and see patient ordered morphine 1mg ivp x1.was given zofran 4mg iv for nausea as prn med .
--- NOTE | 2025-04-12 16:14 | PC.NURSE ---
patient c/ of abdoninal pain again, called dr. tejeda and made aware, new order for kub.
[2025-04-12] MEDS: POLYETHYLENE GLYCOL 17 GM PACKET PO (17:58)
[2025-04-12] MEDS: SIMETHICONE 80 MG CHEW PO (17:59)
[2025-04-12] MEDS: FAMOTIDINE 20 MG TABLET PO (17:59)
[2025-04-12] MEDS: INSULIN LISPRO (AdmeLOG) 1 UNIT/0.01 ML UNIT SC (18:01)
[2025-04-12] MEDS: ATORVASTATIN CALCIUM 20 MG TABLET 80 MG PO (20:46)
[2025-04-13] VITALS: BP 125/73; PULSE 69; PULSE 71; RESP 18; TEMP 36.7; O2SAT 98
[2025-04-13 04:00] VITALS: BP 106/51; PULSE 72; PULSE 82; RESP 16; TEMP 36.8; O2SAT 97
[2025-04-13 05:57] LABS: Basophils # (Auto) 0.0 Thou/mm3 (0.0-0.2); Basophils % (Auto) 1 % (0-2.5); Eosinophils # (Auto) 0.3 Thou/mm3 (0.0-0.5); Eosinophils % (Auto) 4 % (0-10); Hematocrit 38.8 % (41.0-53.0); Hemoglobin 12.2 g/dL (13.5-16.0); Immature Granulocytes Auto 0.02 Thou/mm3 (0.00-0.00); Lymphocytes # (Auto) 2.2 Thou/mm3 (1.0-4.8); Lymphocytes % (Auto) 28 % (10-50); Mean Corpuscular HGB Conc 31.4 g/dl (31.0-37.0); Mean Corpuscular Hemoglobin 22.5 pg (25.0-35.0); Mean Corpuscular Volume 72 fL (80-100); Monocytes # (Auto) 0.7 Thou/mm3 (0.0-0.8); Monocytes % (Auto) 10 % (0-12); Neutrophils # (Auto) 4.6 Thou/mm3 (1.8-7.7); Neutrophils % (Auto) 58 % (37-80); Nucleated Red Blood Cell # 0.00 Thou/mm3 (0.00-0.00); Nucleated Red Blood Cell % 0 /100 WBC (0); Platelet Count 256 Thou/mm3 (140-440); RDW Standard Deviation 39.1 fL (35.1-43.9); Red Blood Count 5.43 Miln/mm3 (4.50-5.90); White Blood Count 7.8 Thou/mm3 (3.8-10.6)
[2025-04-13 06:00] VITALS: BMI 33.0
[2025-04-13 06:15] LABS: INR 1.0 (0.9-1.3); Prothrombin Time 11.2 Seconds (9.0-12.2)
[2025-04-13 06:29] LABS: Alanine Aminotransferase 32 U/L (10-49); Albumin, Serum 3.8 gm/dL (3.5-5.0); Albumin/Globulin Ratio 1.7 (1.2-2.2); Alkaline Phosphatase 90 U/L (46-116); Anion Gap 7 (7-16); Aspartate Amino Transferase 23 U/L (0-34); BUN/Creatinine Ratio 13 Ratio (12-20); Bilirubin,Total 0.4 mg/dL (0.3-1.2); Blood Urea Nitrogen 16 mg/dL (9-23); Calcium 8.1 mg/dL (8.3-10.6); Calcium (Corrected) 8.3 mg/dL (8.5-10.1); Carbon Dioxide 24.3 mMol/L (20.0-31.0); Chloride 108 mMol/L (98-107); Creatinine (Component) 1.2 mg/dL (0.6-1.3); Estimated Creatinine Clearance 100.1 mL/min (>60); Globulin 2.3 gm/dL (2.3-3.5); Glucose 197 mg/dL (74-106); Magnesium 2.1 mg/dL (1.6-2.6); Osmolality,Calculated 283 (275-295); Phosphorous 2.7 mg/dL (2.4-5.1); Potassium 3.9 mMol/L (3.4-5.1); Sodium 139 mMol/L (136-145); Total Protein 6.1 gm/dL (5.7-8.2); eGFR > 60 See Note
[2025-04-13 08:00] VITALS: BP 125/72; PULSE 73; PULSE 75; RESP 16; TEMP 36.8; O2SAT 95
[2025-04-13 09:31] VITALS: BP 125/72; PULSE 73
[2025-04-13] MEDS: ASPIRIN EC 81 MG TABEC PO (09:31)
[2025-04-13] MEDS: FAMOTIDINE 20 MG TABLET PO (09:31)
[2025-04-13] MEDS: ENOXAPARIN SOD INJ 40 MG/0.4 ML SYRINGE SC (09:33)
[2025-04-13] MEDS: POLYETHYLENE GLYCOL 17 GM PACKET PO (09:35)
[2025-04-13] MEDS: CALCIUM CARBONATE 600 MG TABLET 1200 MG PO (11:12)
[2025-04-13] MEDS: CALCIUM GLUC/NS 1000MG IVPB 1,000 MG/50 ML BAG 50 MG IV (11:13)
--- NOTE | 2025-04-13 11:59 | PC.SS ---
SS follow up note; Echo pending at the time. Patient will discharge home when medically cleared.
[2025-04-13 12:00] VITALS: BP 133/83; PULSE 78; RESP 15; TEMP 36.7; O2SAT 97
--- NOTE | 2025-04-13 15:32 | ESDS_ITS ---
<Statement entered by Brannon Deluna MD - 04/16/25 15:00> I have discussed and was present for the essential components of the history, physical examination, diagnosis, and treatment plan with the resident. I agree with the patient's care as documented by the resident and amended herein by me. Brannon Deluna MD FACP. <Statement entered by Ton Noriega MD - 04/13/25 15:43> I discussed and supervised with the internal medicine physician physician who took care of this patient. I personally saw and examined the patient. I agree with most of the assessment and plan. Disclaimer: Despite multiple revisions, due to the dictation software being used, the document bellow may not be free of grammatical errors including phonetic/typographic errors. However, this does not deter from our commitment to providing health care in the patient's best interest in mind. Plan of care discussed with attending Physician Dr. Regi Noriega MD PGY-3 Planned Discharge Date 04/13/25 DS: Providers Provider Date of admission: 04/11/25 18:46 Primary care physician: Kelley Moctezuma PA-C Admitting Provider: Brannon Deluna MD Attending Provider on Admission: Brannon Deluna MD Consults: 04/11/25 23:25 Referral [place] Routine Comment: 04/12/25 11:56 Consult to Cardiology Stat Comment: chest pain w/ risk factors Consulting Provider: Fortunato Sierra Attending Provider on DC: RESIDENT Car Discharging Provider: RESIDENT Car DS: Diagnosis Problem List Completed Was Problem List Reviewed/Reconciled?: Yes Hospital Course Hospital Course Hospital course: 44-year-old male with PMHx of hypertension (untreated prior to admission), hyperlipidemia, type 2 diabetes mellitus (on [place], compliant), and a remote history of coccidioidomycosis was admitted for evaluation of intermittent exertional midsternal chest pain. Chest pain had been intermittent for weeks but worsened in the two days prior to presentation, associated with shortness of breath, left arm numbness, nausea, and an episode of vomiting. On admission, EKG was normal and initial troponin was elevated with a peak at 0.196. The patient was given aspirin and started on atorvastatin 80 mg. He was monitored on telemetry with serial troponins showing stable/mild downtrend (last 0.195). Cardiology was consulted and an echocardiogram was ordered and is pending final read by hospice plan administrator. During hospitalization, the patient had one episode of mild chest pain on day 2 but has otherwise been chest pain-free. He also developed new lower colicky abdominal pain, with X-ray showing mild small bowel ileus and moderate stool burden, likely due to constipation. He was managed with Miralax, Senna, Simethicone, and supportive care; pain resolved after passage of loose stools. Hgb was noted to trend mildly downward (lowest 12.2) but patient denied signs of bleeding, and electrolytes remained normal. Calcium was slightly low at 8.1, so he received calcium carbonate without issue. He tolerated diet well, has been ambulating, and reports no new dizziness, shortness of breath, or neuro symptoms. Patient?s hypertension is now controlled on lisinopril 20 mg daily. Diabetes is stable on home Farxiga. No signs of recurrent or active coccidioidomycosis during admission. Per Cardiology (Dr. Sierra) recommends outpatient follow-up; echo will be finalized by another hospice plan administrator Patient has been cleared to be discharged today with close outpatient follow-up and outpatient stress testing per cardiology. Final Diagnoses This Admission * Exertional chest pain, rule out acs, likely stable angina vs non-cardiac * Hypertension * Hyperlipidemia * Type 2 diabetes mellitus * Constipation with mild ileus, resolved * Remote history of coccidioidomycosis Care Plan Goals -Take aspirin 81 mg atorvastatin 80 mg, famotidine 20 mg once a day, Dapaglifozin 10 mg once a day and metformin 500 mg twice daily -Take simethicone and Miralax as needed for constipation -Patient will need urgent cardiology follow up with stress testing and possible cardiac cath as outpatient due to concern for unstable Angina -F/U PCP as outpt -In case of Emergency call 911 or come back to ED ----- Plan discussed with attending physician Dr. Regi Hidalgo MD PGY-1 Internal Medicine Time Spent with Patient Time attestation: Total time spent providing and/or coordinating discharge services: Time spent: Greater than 30 minutes Exam Vital Signs Temp Pulse Resp BP Pulse Ox O2 Del Method 98.0 F 78 15 133/83 H 97 Room Air 04/13/25 12:04/13/25 12:00 04/13/25 12:04/13/25 12:04/13/25 12:04/13/25 12:00 Narrative Exam -General: Alert, no acute distress at bedside -Cardiac: RRR, normal S1/S2, no murmurs, rubs, or gallops, no JVD -Lungs: Clear to auscultation bilaterally, breathing comfortably, no increased work of breathing -Abdomen: Soft, non-tender, non-distended, normal bowel sounds -Extremities: No cyanosis or edema, pulses 2+ bilaterally, warm, well-perfused Discharge Plan Plan Patient Disposition: HOME (Self Care) Care Plan Goals: Take aspirin 81 mg atorvastatin 80 mg, famotidine 20 mg once a day, Dapaglifozin 10 mg once a day and metformin 500 mg twice daily Take simethicone and Miralax as needed for constipation Patient will need urgent cardiology follow up with stress testing and possible cardiac cath as outpatient due to concern for unstable Angina F/U PCP as outpt In case of Emergency call 911 or come back to ED Prescriptions/Referrals Prescriptions/Med Rec: New aspirin 81 mg Tablet,Delayed Release (Dr/Ec) 81 mg PO QDAY Qty: 90 0RF atorvastatin 80 mg tablet 80 mg PO HS Qty: 90 0RF polyethylene glycol 3350 [HealthyLax] 17 gram Powder In Packet 17 g PO QDAY Qty: 30 0RF simethicone 80 mg Tablet,Chewable 80 mg PO QID PRN (Reason: Gas) Qty: 90 0RF lisinopril 20 mg Tablet 20 mg PO QDAY Qty: 90 0RF famotidine 20 mg Tablet 20 mg PO QDAY Qty: 90 0RF metformin 500 mg tablet 500 mg PO BID Qty: 90 0RF Continued ergocalciferol (vitamin D2) 1,250 mcg (50,000 unit) capsule 1,250 mcg PO QWEEK Patient Comments: TAKE 1 CAPSULE BY MOUTH ONCE A WEEK dapagliflozin propanediol [Farxiga] 10 mg tablet 10 mg PO DAILY Patient Comments: TAKE 1 TABLET BY MOUTH ONCE DAILY testosterone cypionate 200 mg/mL oil 400 mg SUBCUT Q7D Patient Comments: INJECT 2 ML INTRAMUSCULARLY ONCE A WEEK Discontinued pravastatin 10 mg tablet 10 mg PO DAILY Patient Comments: TAKE 1 TABLET BY MOUTH ONCE DAILY IN THE EVENING DIRECTED FOR 90 DAYS tamsulosin 0.4 mg capsule 0.4 mg PO Q24H Patient Comments: TAKE 1 CAPSULE BY MOUTH ONCE DAILY Referrals: Kelley Moctezuma PA-C [Primary Care Provider] - Fortunato Sierra MD [Physician] - Patient/Caregiver Discharge Instructions Print Language: Lithuanian Stand Alone Forms: Kika Award Info., Patient Portal Info Letter, Work/Release Restrictions Discharge Order Discharge Orders: Discharge (Routine); Ordered 04/13/25 Ordered By: Aan Hidalgo Quality Discharge Quality Measures VTE prophylaxis
[2025-04-13 16:00] VITALS: BP 107/54; PULSE 72; PULSE 787; RESP 15; TEMP 37.2; O2SAT 98
--- NOTE | 2025-04-13 18:51 | ECHO_ITS ---
Transthoracic Echo Report Ht (in): 71 Wt (lb): 245 Exam Location: Echo Lab Status: Inpatient Editorial Manager: Maddy Hoffman Indications: Procedure Performed: BP: 112 / 76 HR: 76 Technical Quality: Adequate MEASUREMENTS (Male / Female) Normal Values 2D ECHO LV Diastolic Diameter PLAX 5.0 cm 4.2 - 5.9 / 3.9 - 5.3 cm LV Systolic Diameter PLAX 3.9 cm IVS Diastolic Thickness 0.8 cm 0.6 - 1.0 / 0.6 - 0.9 cm LVPW Diastolic Thickness 0.7 cm 0.6 - 1.0 / 0.6 - 0.9 cm LV Relative Wall Thickness 0.3 LVOT Diameter 2.0 cm LA Volume Index 31.3 cm?/m? 16 - 28 cm?/m? Ascending Aorta Diameter 3.1 cm M-MODE AV Cusp Separation MM 1.7 cm DOPPLER AV Peak Velocity 143.0 cm/s AV Peak Gradient 8.2 mmHg LVOT Peak Velocity 85.4 cm/s LVOT Peak Gradient 2.9 mmHg AV Area Cont Eq pk 1.9 cm? MV Area PHT 3.9 cm? Mitral E Point Velocity 90.2 cm/s Mitral A Point Velocity 55.8 cm/s Mitral E to A Ratio 1.6 LV E' Lateral Velocity 9.8 cm/s Mitral E to LV E' Lateral Ratio 9.2 LV E' Septal Velocity 6.7 cm/s Mitral E to LV E' Septal Ratio 13.4 PV Peak Velocity 103.0 cm/s PV Peak Gradient 4.2 mmHg FINDINGS Left Ventricle The left ventricular cavity size is normal. The left ventricular wall thicknesses are normal. The left ventricular ejection fraction is mildly decreased, estimated at 45-50%. There is evidence for increased left atrial pressure. Right Ventricle The right ventricle is normal in size and systolic function. The estimated right ventricular systolic pressure can not be determined due to innadequate tricuspid signal. Left Atrium The left atrium is normal by two-dimensional, color flow and Doppler imaging with no structural abnormalities, no thrombus formation present. Right Atrium The right atrium is normal by two-dimensional imaging, color flow and Doppler imaging with no structural abnormalities, no thrombus formation present. Atrial Septum The interatrial septum appears normal with no evidence of a shunt. Aorta The aorta is normal by two-dimensional, color flow and Doppler interrogation. Mitral Valve The mitral valve is normal by two-dimensional, color flow and Doppler interrogation. There is trace mitral regurgitation. Aortic Valve The aortic valve is trileaflet and normal by two-dimensional, color flow and Doppler interrogation. There is no significant aortic valve regurgitation. Tricuspid Valve The tricuspid valve is normal by two-dimensional, color flow and Doppler interrogation. There is no significant tricuspid valve regurgitation. Pulmonic Valve The pulmonic valve is not well visualized. There is no significant pulmonic valve regurgitation. Vessels The pulmonary artery appears normal. The inferior vena cava pulmonary and hepatic veins appear normal. Pericardium The pericardium is normal by two-dimensional imaging. There is no significant pericardial effusion. CONCLUSIONS Indications: Chest Pain With Risk Factors Normal LV size with low normal function. Estimated EF of around 50%. Grade 2 diastolic dysfunction Normal RV size and function. Trace MR and TR. Mild biatrial dilatation. No pericardial effusion. Kike Powell (Electronically Signed) Final Date: 14 April 2025 07:47
== END 2025-04-13 18:43 | disposition home or self-care (01) ==
LOC: SERX 16:18 → SERHOLD 20:26 → S2NX 04-12 08:46 → SERHOLD 04-12 09:14 → S2NX 04-12 09:17 → SERHOLD 04-12 09:17
PROVIDERS: Nurse Practitioner Family; Admitting Provider Internal Medicine; Emergency Provider Emergency Medicine; PCP Specialist; Visit Provider Internal Medicine
DX: R07.9 Chest pain, unspecified (principal); E11.65 Type 2 diabetes mellitus with hyperglycemia; E78.5 Hyperlipidemia, unspecified; I10 Essential (primary) hypertension; I25.10 Atherosclerotic heart disease of native coronary artery without angina pectoris; K56.7 Ileus, unspecified; Z01.810 Encounter for preprocedural cardiovascular examination; R06.02 Shortness of breath; R53.1 Weakness; R11.2 Nausea with vomiting, unspecified
CPT/HCPCS: 36415; 71046; 74018; 80053; 80061; 80307; 81001; 83036; 83735; 83880; 84100; 84443; 84484; 85025; 85610; 85730; 93005; 93306; 99285; G0378; J0613; J1650; J1815; J2270; J2405; A9270